=== PATIENT | female | born 1965 | race Caucasian/White ===

== ENCOUNTER 2017-10-24 13:39 | Emergency (ER) | payer SELFPAY ==
[~2017-10-24] VITALS: Ht 162.6 cm; Wt 83.3 kg
[~2017-10-24 13:39] MED LIST: ASPI-1159 PO; CLON0.1T PO; FERR-71 PO; FURO-151 PO; GLYB5TAB7 PO; LISI40TA4 PO; METF500T6 PO; METO-539 PO; SIMV40TA5 MT
[2017-10-24 14:04] VITALS: BP 127/76
[2017-10-24 15:54] LABS: EOSINOPHILS % 1.7 % (0.0-5.0); HEMATOCRIT. 34.9 % (36.0-48.0); HEMOGLOBIN. 11.6 g/dL (12.0-16.0); LYMPHOCYTES % 21.2 % (20.0-50.0); MEAN CORPUSCULAR HEMOGLOBIN 26.1 pg (28.0-32.0); MEAN CORPUSCULAR VOLUME 78.3 fL (81.0-99.0); MONOCYTES % 7.1 % (2.0-8.0); PLATELET 144 x1000/uL (130-400); RED BLOOD CELL COUNT 4.45 mill/uL (4.2-5.4); RED CELL DISTRIBUTION WIDTH 21.8 % (11.6-14.6)
[2017-10-24 15:59] LABS: CHLORIDE 109 mEq/L (98-107); INR 1.2; PROTHROMBIN TIME 12.4 sec (9.1-11.1)
[2017-10-24 16:06] LABS: AMMONIA 54 uMol/L (<32)
== END 2017-10-24 16:23 | disposition left against medical advice (07) ==
LOC: ER 13:39
DX: R14.0 Abdominal distension (gaseous) (principal); E11.9 Type 2 diabetes mellitus without complications; Z87.19 Personal history of other diseases of the digestive system
CPT/HCPCS: 36415; 80053; 82140; 83615; 85025; 85610; 86304; 99284; A4315